=== PATIENT | female | born 1990 | race Two or more races ===

== ENCOUNTER 2020-10-02 18:11 | Emergency (ER) | payer OTHER ==
[~2020-10-02] VITALS: Ht 157.5 cm; Wt 66.3 kg
--- NOTE | 2020-10-02 19:15 | PHYS DOC ---
Past Medical History Past Medical History: Anxiety, Depression, Seizure Past Surgical History: Other Additional Past Surgical Histo: HERNIA Smoking Status: Current Every Day Smoker Additional Information: 0.25 PPD Alcohol Use: Occasionally General Adult EDM: Chief Complaint: ABDOMINAL PAIN HPI: HPI: Patient is a 30 year old female who presents to the emergency department with 3 hours of abdominal pain. Patient states that she has a crampy 7 out of 10 abdominal pain mostly epigastric and suprapubic but also diffusely throughout her abdomen. Patient states that she has had 2 weeks of bloating and is also 10 days late on her menstrual cycle. She states she has taken 2 tests at home which have been negative and is on the Depo-Provera shot and has been having regular bowel movements. Patient has not had any fevers but has experienced some chills and has vomited twice today. Patient has taken Tylenol which has not given her any relief. Review of Systems: Review of Systems: Review of systems: Constitutional symptoms- No fever, positive chills. Eyes- No Discharge, No Visual Loss Respiratory symptoms- No shortness of breath, No wheezing, No Dyspnea on Exertion Cardiovascular Systems; No chest pain, No Palpitations, No syncope Gastrointestinal symptoms: Positive abdominal pain, nausea, vomiting, no diarrhea. Genitourinary symptoms: No dysuria, no frequency. Musculoskeletal symptoms: No back pain No extremity pain. NEUROLOGICAL Symptoms: Positive headache, no generalized weakness; No focal Weakness Heart Score: C/O Chest Pain: N/A Risk Factors: Risk Factors: DM, Current or recent (<one month) smoker, HTN, HLP, family history of CAD, obesity. Risk Scores: Score 0 - 3: 2.5% MACE over next 6 weeks - Discharge Home Score 4 - 6: 20.3% MACE over next 6 weeks - Admit for Clinical Observation Score 7 - 10: 72.7% MACE over next 6 weeks - Early Invasive Strategies Allergies: Allergies: Allergies Coded Allergies Type Severity Reaction Last Updated Verified aspirin Allergy Unknown UNKNOWN 10/02/20 Yes hydromorphone Allergy Unknown UNKNOWN 10/02/20 Yes Physical Exam: PE: General: alert, no acute distress. Skin: warm, dry and intact. Head:: Normocephalic, atraumatic. Neck: Trachea midline. Eyes: EOMI, Normal conjunctiva, No drainage CARDIOVASCULAR: Regular rate and rhythm RESPIRATORY: No respiratory distress Back: Full range of motion. MUSCULOSKELETAL: Full range of motion of bilateral upper and lower extremities. GASTROINTESTINAL: Abdomen soft without rebound or guarding, distended, tenderness to palpation over epigastric and suprapubic. NEUROLOGICAL: Alert and noted to person, place and time. No neurological deficits observed Psychiatric: Cooperative. Normal judgment Current Patient Data: Labs: Laboratory Tests Test 10/02/20 18:30 POC Urine HCG, Qualitative Hcg negative (Negative) Vital Signs: Vital Signs Date Time Temp Pulse Resp B/P (MAP) Pulse Ox O2 Delivery O2 Flow Rate FiO2 10/02/20 18:45 97.7 89 16 110/69 (83) 97 Room Air 97.7 EKG: EKG: [] Radiology/Procedures: Radiology/Procedures: [] Impression: FINDINGS: Heart size is normal. No pericardial effusion. Visualized lung bases are clear. No pleural effusion Liver, spleen, pancreas and adrenals are unremarkable. Gallbladder is decompressed. No perinephric inflammation or hydronephrosis. No renal or ureteral calculi are identified. Bladder is decompressed not well evaluated. Uterus is nonenlarged. No abnormal adnexal mass. Large and small bowel are unremarkable. Appendix is normal. No free intra- abdominal air or fluid. No obstruction. Abdominal aorta has a normal course and caliber. Abdominal vasculature is patent. No enlarged intra-abdominal lymph nodes are identified. No suspicious osseous lesions or acute fractures. IMPRESSION: No acute process identified within the abdomen or pelvis. Course & Med Decision Making: Course & Med Decision Making Pertinent Labs and Imaging studies reviewed. (See chart for details) CT abdomen without acute emergent maladies. Patient hCG serum negative. Patient's urine without signs of infection. [employer] Disclaimer: Maren Disclaimer: This electronic medical record was generated, in whole or in part, using a voice recognition dictation system. Departure Departure Impression: Primary Impression: Abdominal pain Disposition: HOME / SELF CARE / HOMELESS Condition: STABLE Referrals: NO PCP (PCP) Patient Instructions: Abdominal Pain Scripts Ondansetron Hcl (ZOFRAN) 4 Mg Tablet 1 TAB PO Q6HRS, #20 TAB Prov: CHERY OLIVAS DO 10/02/20 CHERY OLIVAS DO Oct 02, 2020 19:15
[2020-10-02 19:28] LABS: BASO % 0 % (0-3); EOS # 0.2 x10^3/uL (0.0-0.7); EOS % 2 % (0-3); HEMATOCRIT 40.5 % (36.0-47.0); HEMOGLOBIN 13.4 g/dL (12.0-15.5); LYMPH # 1.4 x10^3/uL (1.0-4.8); LYMPH % 14 % (24-48); MEAN CORPUSCULAR HEMOGLOBIN 30 pg (25-35); MEAN CORPUSCULAR HGB CONC 33 g/dL (31-37); MEAN CORPUSCULAR VOLUME 91 fL (79-100); MONO # 0.5 x10^3/uL (0.0-1.1); MONO % 5 % (0-9); NEUT # 8.3 x10^3/uL (1.8-7.7); NEUT % 79 % (31-73); PLATELET COUNT 267 x10^3/uL (140-400); RED BLOOD COUNT 4.46 x10^6/uL (3.50-5.40); RED CELL DISTRIBUTION WIDTH 13.4 % (11.5-14.5); WHITE BLOOD COUNT 10.5 x10^3/uL (4.0-11.0)
[2020-10-02 19:40] LABS: CALCIUM 8.6 mg/dL (8.5-10.1); CREATININE 0.8 mg/dL (0.6-1.0); GFR 85.4; POTASSIUM 3.8 mmol/L (3.5-5.1)
[2020-10-02 19:46] LABS: ALBUMIN 3.7 g/dL (3.4-5.0); TOTAL BILIRUBIN 0.2 mg/dL (0.2-1.0); TOTAL PROTEIN 7.4 g/dL (6.4-8.2)
[2020-10-02] MEDS ORDERED: CONTRAST GIVEN. MC PRN (20:15)
[2020-10-02] MEDS ORDERED: IOHEXOL 300 MG/ML 100ML VIAL. IV ONE (20:15)
--- NOTE | 2020-10-02 20:32 | RAD ---
Exam: CT of abdomen and pelvis with contrast INDICATION: Abdominal pain TECHNIQUE: Sequential axial images through the abdomen and pelvis obtained following the administrati on of 75 mL of Omni 300 IV contrast. Sagittal and coronal reformatted images were reconstructed from the axial data and reviewed. Comparisons: None FINDINGS: Heart size is normal. No pericardial effusion. Visualized lung bases are clear. No pleural effusion Liver, spleen, pancreas and adrenals are unremarkable. Gallbladder is decompressed. No perinephric inflammation or hydronephrosis. No renal or ureteral calculi are identified. Bladder is decompressed not well evaluated. Uterus is nonenlarged. No abnormal adnexal mass. Large and small bowel are unremarkable. Appendix is normal. No free intra-abdominal air or fluid. No obstruction. Abdominal aorta has a normal course and caliber. Abdominal vasculature is patent. No enlarged intra-abdominal lymph nodes are identified. No suspicious osseous lesions or acute fractures. IMPRESSION: No acute process identified within the abdomen or pelvis. Exposure: One or more of the following in the visualized dose reduction techniques were utilized for this examination: 1. Automated exposure control 2. Adjustment of the MA and/or KV according to patient size 3. Use of iterative of reconstructive technique Electronically signed by: Feroz Mares MD (10/02/2020 8:30 PM) [facility]
[2020-10-02 21:45] LABS: BILIRUBIN,URINE NEGATIVE (NEG); CLARITY,URINE CLEAR; COLOR,URINE YELLOW; NITRITE,URINE NEGATIVE (NEG); PH,URINE 5.5 (<5.0-8.0); PROTEIN,URINE NEGATIVE (NEG-TRACE); UROBILINOGEN,URINE 0.2 mg/dL (0.2 mg/dL)
[2020-10-02 21:51] LABS: BACTERIA,URINE FEW /HPF (0-FEW); RBC,URINE 0 /HPF (0-2); WBC,URINE OCC /HPF (0-4)
[2020-10-02] MEDS ORDERED: ONDA4TAB7 PO (21:54)
[2020-10-02 21:56] VITALS: BP 112/70
== END 2020-10-02 22:00 | disposition home or self-care (01) ==
LOC: ER 18:11
DX: R10.13 Epigastric pain (principal); R14.0 Abdominal distension (gaseous); R11.2 Nausea with vomiting, unspecified; F41.9 Anxiety disorder, unspecified; F32.9 Major depressive disorder, single episode, unspecified; F17.200 Nicotine dependence, unspecified, uncomplicated; Z98.890 Other specified postprocedural states; Z88.5 Allergy status to narcotic agent; Z88.8 Allergy status to other drugs, medicaments and biological substances
CPT/HCPCS: 36415; 74177; 80053; 81001; 81025; 84702; 85025; 99285; Q9967